=== PATIENT | male | born 1970 | race Caucasian/White ===

== ENCOUNTER 2019-07-15 13:14 | Inpatient (IN) ==
[2019-07-15] MEDS ORDERED: Metoprolol Tartrate 5 mg VIAL 5 ml VIAL (1 mg/ml) IV ONE ×2 (13:31→14:36)
[2019-07-15] MEDS ORDERED: Heparin DRIP 25,000 UNITS(*) 25,000 UNITS/500 ML BAG IV SCH (13:45)
[2019-07-15] MEDS ORDERED: Heparin 5000 UNITS/ML VIAL(*) 1 ml vial IV SCH (14:00)
[2019-07-15 14:11] LABS: ABS Eosinophils 0.1 10^3/ul (0-0.6); ABS Lymphocytes 2.9 10^3/ul (1.0-4.8); ABS Monocytes 0.5 10^3/ul (0-0.8); Eosinophil % 0.6 %; Hematocrit 43 % (42-52); Hemoglobin 15.5 g/dL (14.0-18.0); Lymphocyte % 33.6 %; Mean Corpuscular HGB Conc 36 g/dL (31-36); Mean Corpuscular Hemoglobin 34 pg (27-31); Mean Corpuscular Volume 93 fL (80-94); Mean Platelet Volume 8.4 fL (7.4-10.4); Nucleated Red Blood Cells % 0.1; Platelet Count 172 10^3/uL (150-450); Red Cell Distribution Width 12 % (10-15); White Blood Count 8.7 10^3/uL (3.5-10.8)
[2019-07-15] MEDS ORDERED: diPHENhydraMINE 25 mg TAB PO PRN (14:31)
[2019-07-15] MEDS ORDERED: Diazepam 5 mg TAB (*) PO PRN (14:31)
[2019-07-15 14:33] LABS: Blood Urea Nitrogen 13 mg/dL (6-24); EGFR African American 130.5 (>60); EGFR Non-African American 107.8 (>60)
[2019-07-15] MEDS ORDERED: VERAPAMIL 2.5 MG/ML 2 ML VIAL ** 5 mg/2 ml ONE ×2 (14:39→16:10)
[2019-07-15] MEDS ORDERED: Heparin 1,000 UNIT/ML CATH LAB 1,000 10 ml (10,000 UNITS) IV ONE (14:39)
[2019-07-15] MEDS ORDERED: nitroGLYCERIN DRIP 25,000 MCG/250 ML BTL ONE (14:40)
[2019-07-15] MEDS ORDERED: Lidocaine 1% VIAL 10 MG/ML VIAL ONE (14:40)
[2019-07-15] MEDS ORDERED: Iohexol 350 (CONTRAST) 200 ML MDV IV ONE (14:40)
[2019-07-15] MEDS ORDERED: Heparin 2 UNITS/ML 1000 mls 3,000 ML IV ONE (14:40)
[2019-07-15] MEDS ORDERED: NS 0.9% 1000 ml BAG 1,000 ML IV SCH (14:45)
[2019-07-15] MEDS ORDERED: Midazolam 5 mg/5 ml VIAL 1 mg/ml 5 ml VIAL (5 mg) ONE (14:49)
[2019-07-15] MEDS ORDERED: fentaNYL 100 mcg/2 ml 50 MCG/ML VIAL ONE ×2 (14:49→15:56)
[2019-07-15] MEDS ORDERED: Heparin 2 UNITS/ML 1000 mls 1,000 ML IV ONE (16:37)
[2019-07-15] MEDS ORDERED: Atropine 0.1 MG/ML 10 ml SYR (1 mg) ONE (16:53)
[2019-07-15] MEDS ORDERED: oxyCODONE/Acetamin 5/325 mg TAB PO PRN (16:54)
[2019-07-15] MEDS ORDERED: Atropine 1MG/ML INJ 1 ML VIAL IV PUSH PRN (17:00)
[2019-07-16 05:26] LABS: Anion Gap 6 mmol/L (2-11); BUN/Creatinine Ratio 14.3 (8-20); Blood Urea Nitrogen 13 mg/dL (6-24); CO2 Carbon Dioxide 27 mmol/L (22-32); Calcium 9.2 mg/dL (8.6-10.3); Chloride 106 mmol/L (101-111); EGFR African American 107.6 (>60); EGFR Non-African American 88.9 (>60); Glucose 109 mg/dL (70-100); Potassium 4.3 mmol/L (3.5-5.0); Sodium 139 mmol/L (135-145)
[2019-07-16 05:30] LABS: Troponin I 0.77 ng/mL (<0.03)
[2019-07-16 10:54] VITALS: BP 126/82
[2019-07-16 11:10] LABS: Cholesterol 197 mg/dL; HDL Cholesterol 28.4 mg/dL; LDL Cholesterol 125 mg/dL; Triglycerides 218 mg/dL
== END 2019-07-16 12:30 | disposition home or self-care (01) | DRG 174 ==
LOC: ICU 13:14 → ED 13:14 → ICU 15:11
PROVIDERS: ADMIT Hospitalist; ATTEND Specialist